=== PATIENT | female | born 1980 | race Caucasian/White ===

== ENCOUNTER 2018-01-12 22:30 | Emergency (ER) | payer OTHER ==
[~2018-01-12] VITALS: Ht 162.5 cm; Wt 44.5 kg
[~2018-01-12 22:30] MED LIST: AMITRIPTYLINE10 MG PO; AMOXICILLIN500 MG PO; ANAPROX DS550 MG PO; AUGMENTIN 875 M1 TAB PO; AUGMENTIN 875875 MG PO; BACTRIM DS 8001 TA1 PO; CIPRO500 MG PO; CIPROFLOXACIN500 MG PO; FLAGYL500 MG PO; FLEXERIL10 MG PO; Fioricet 325 MG1 TAB PO; IBU800 MG PO; KEFLEX500 MG PO; MOTRIN800 MG PO; MUCINEX DM 30/61 TAB PO; NAPROSYN500 MG PO; NORTRIPTYLINE10 MG PO; PERCOCET 325 MG1 TA2 PO; PERCOCET 325 MG1 TA6 PO; POTASSIUM20 MEQ PO; PREDNISONE20 M1 PO; PRILOSEC20 MG PO; PRILOSEC40 MG PO; QUETIAPINE FUMA25 MG PO; REGLAN10 MG PO; TESSALON PERLE100 M1 PO; TRAMADOL HCL50 MG PO; TRIMOX500 MG PO; VIBRAMYCIN100 MG PO; ZITHROMAX250 MG PO; ZITHROMAX500 MG PO; ZOFRAN ODT4 MG SL; ZOFRAN4 MG PO
[2018-01-12 22:36] VITALS: BP 104/67
[2018-01-12] MEDS ORDERED: SUBOXONE 12 MG1 EACH SL (22:43)
[2018-01-12] MEDS ORDERED: IBU800 MG PO (23:29)
== END 2018-01-12 23:52 | disposition home or self-care (01) ==
LOC: ED 22:30
DX: M25.572 Pain in left ankle and joints of left foot (principal); K21.9 Gastro-esophageal reflux disease without esophagitis; F10.10 Alcohol abuse, uncomplicated; F17.200 Nicotine dependence, unspecified, uncomplicated; Z88.8 Allergy status to other drugs, medicaments and biological substances; Z79.899 Other long term (current) drug therapy; Z90.49 Acquired absence of other specified parts of digestive tract

== ENCOUNTER 2018-05-20 11:19 | Emergency (ER) | payer OTHER ==
[~2018-05-20] VITALS: Ht 165.1 cm; Wt 38.6 kg
[~2018-05-20 11:19] MED LIST changes: +SUBOXONE 12 MG1 EACH SL
[2018-05-20 11:47] LABS: BASO % 0.2 % (0.0-1.0); HEMATOCRIT 40.5 % (37.0-47.0); HEMOGLOBIN 12.9 g/dl (12.0-16.0); LYMPH # 0.9 10*3/uL (1.3-4.4); MEAN CELL VOLUME 92.7 fl (81.0-99.0); MEAN CORPUSCULAR HGB 29.5 pg (27.0-31.0); MEAN CORPUSCULAR HGB CONC 31.9 g/dl (33.0-37.0); MEAN PLATELET VOLUME 11.1 fl (9.6-12.3); MONO # 0.4 10*3/uL (0.1-1.0); MONO % 3.2 % (3.0-9.0); NEUT # 9.9 10*3/uL (2.3-7.9); NEUT % 88.3 % (47.0-73.0); PLATELET COUNT AUTOMATED 179 10*3/uL (130-400); RED BLOOD COUNT 4.37 10*6/uL (4.10-5.10); RED CELL DISTRI WIDTH 12.5 % (0-14.5); WHITE BLOOD COUNT 11.2 10*3/uL (4.8-10.8)
[2018-05-20 12:01] LABS: ALBUMIN 3.2 gm/dl (3.1-4.5); ALKALINE PHOSPHATASE 79 U/L (45-117); BUN 10 mg/dl (7-24); CHLORIDE 104 mmol/L (98-107); CREATININE 0.55 mg/dL (0.55-1.02); LIPASE 42 U/L (73-393); POTASSIUM 3.6 mmol/L (3.5-5.1); SGOT/AST 13 IU/L (3-35); SGPT/ALT 13 U/L (12-78); SODIUM 139 mmol/L (136-145); TOTAL PROTEIN 7.4 gm/dL (6.4-8.2)
[2018-05-20 12:51] VITALS: BP 99/61
[2018-05-20] MEDS ORDERED: Zofran4 MG SL (13:14)
[2018-05-20] MEDS ORDERED: PREDNISONE50 MG PO (13:14)
[2018-05-20] MEDS ORDERED: PROAIR HFA8.5 GM INH (13:14)
[2018-05-20] MEDS ORDERED: MUCINEX1200 M1 PO (13:14)
[2018-05-20] MEDS ORDERED: LEVOFLOXACIN500 MG PO (13:14)
== END 2018-05-20 13:16 | disposition home or self-care (01) ==
LOC: ED 11:19
PROVIDERS: Nurse Practitioner Family
DX: J20.9 Acute bronchitis, unspecified (principal); J06.9 Acute upper respiratory infection, unspecified; F17.210 Nicotine dependence, cigarettes, uncomplicated; Z79.899 Other long term (current) drug therapy; Z90.49 Acquired absence of other specified parts of digestive tract; Z98.51 Tubal ligation status

== ENCOUNTER 2019-08-23 12:32 | Emergency (ER) | payer OTHER ==
[~2019-08-23] VITALS: Ht 162.5 cm; Wt 45.4 kg
[~2019-08-23 12:32] MED LIST changes: +LEVOFLOXACIN500 MG PO; +MUCINEX1200 M1 PO; +PREDNISONE50 MG PO; +PROAIR HFA8.5 GM INH; +Zofran4 MG SL
[2019-08-23 12:33] VITALS: BP 116/78
[2019-08-23 13:02] LABS: BASO % 0.2 % (0.0-1.0); EOS % 0.2 % (1.0-4.0); HEMATOCRIT 44.8 % (37.0-47.0); HEMOGLOBIN 13.9 g/dl (12.0-16.0); LYMPH # 1.3 10*3/uL (1.3-4.4); LYMPH % 16.2 % (27.0-41.0); MEAN CELL VOLUME 95.5 fl (81.0-99.0); MEAN CORPUSCULAR HGB 29.6 pg (27.0-31.0); MEAN PLATELET VOLUME 11.7 fl (9.6-12.3); MONO # 0.2 10*3/uL (0.1-1.0); MONO % 2.5 % (3.0-9.0); NEUT # 6.7 10*3/uL (2.3-7.9); NEUT % 80.7 % (47.0-73.0); PLATELET COUNT AUTOMATED 162 10*3/uL (130-400); RED BLOOD COUNT 4.69 10*6/uL (4.10-5.10); RED CELL DISTRI WIDTH 12.2 % (0-14.5); WHITE BLOOD COUNT 8.3 10*3/uL (4.8-10.8)
[2019-08-23 13:22] LABS: ALBUMIN 3.7 gm/dl (3.1-4.5); ALKALINE PHOSPHATASE 66 U/L (45-117); BUN 5 mg/dl (7-24); CHLORIDE 109 mmol/L (98-107); CREATININE 0.68 mg/dL (0.55-1.02); LIPASE 38 U/L (73-393); POTASSIUM 3.6 mmol/L (3.5-5.1); SGOT/AST 11 IU/L (3-35); SGPT/ALT 10 U/L (12-78); SODIUM 139 mmol/L (136-145)
[2019-08-23 13:53] LABS: BILIRUBIN 1+ (NEGATIVE); BLOOD NEGATIVE (NEGATIVE); CLARITY CLEAR (CLEAR); COLOR YELLOW (YELLOW); GLUCOSE NEGATIVE (NEGATIVE); KETONE 2+ (NEGATIVE); LEUKO ESTERASE NEGATIVE (NEGATIVE); NITRITE NEGATIVE (NEGATIVE); PH 7.5 (5.0-9.0)
[2019-08-23] MEDS ORDERED: ZOFRAN4 MG PO (13:54)
[2019-08-23 14:02] LABS: EPITHELIAL CELLS 31-40
[2019-08-23 14:03] LABS: BACTERIA TRACE; MUCOUS 1+
== END 2019-08-23 14:20 | disposition home or self-care (01) ==
LOC: ED 12:32
PROVIDERS: Nurse Practitioner Family
DX: B34.9 Viral infection, unspecified (principal); E86.0 Dehydration; R19.7 Diarrhea, unspecified; M79.10 Myalgia, unspecified site; K21.9 Gastro-esophageal reflux disease without esophagitis; Z88.8 Allergy status to other drugs, medicaments and biological substances; Z79.2 Long term (current) use of antibiotics; Z79.899 Other long term (current) drug therapy; Z90.49 Acquired absence of other specified parts of digestive tract

== ENCOUNTER 2020-02-11 10:28 | Emergency (ER) | payer OTHER ==
[~2020-02-11] VITALS: Ht 162.5 cm; Wt 45.4 kg
[2020-02-11 11:14] LABS: BASO % 0.2 % (0.0-1.0); EOS # 0.1 10*3/uL (0.0-0.4); EOS % 0.3 % (1.0-4.0); HEMATOCRIT 40.2 % (37.0-47.0); LYMPH # 1.3 10*3/uL (1.3-4.4); LYMPH % 8.5 % (27.0-41.0); MEAN CELL VOLUME 96.4 fl (81.0-99.0); MEAN CORPUSCULAR HGB 30.2 pg (27.0-31.0); MEAN CORPUSCULAR HGB CONC 31.3 g/dl (33.0-37.0); MEAN PLATELET VOLUME 11.2 fl (9.6-12.3); MONO # 0.6 10*3/uL (0.1-1.0); NEUT # 12.9 10*3/uL (2.3-7.9); NEUT % 86.6 % (47.0-73.0); PLATELET COUNT AUTOMATED 201 10*3/uL (130-400); RED BLOOD COUNT 4.17 10*6/uL (4.10-5.10); RED CELL DISTRI WIDTH 12.5 % (0-14.5); WHITE BLOOD COUNT 14.9 10*3/uL (4.8-10.8)
[2020-02-11 11:31] LABS: ALBUMIN 3.3 gm/dl (3.1-4.5); ALKALINE PHOSPHATASE 76 U/L (45-117); BUN 9 mg/dl (7-24); CHLORIDE 116 mmol/L (98-107); CREATININE 0.79 mg/dL (0.55-1.02); LIPASE 26 U/L (73-393); POTASSIUM 3.4 mmol/L (3.5-5.1); SGOT/AST 16 IU/L (3-35); SGPT/ALT 14 U/L (12-78); SODIUM 142 mmol/L (136-145); TOTAL PROTEIN 7.3 gm/dL (6.4-8.2)
[2020-02-11 13:40] LABS: CLARITY SL CLOUDY (CLEAR); COLOR YELLOW (YELLOW); GLUCOSE NEGATIVE (NEGATIVE)
[2020-02-11 13:41] LABS: BILIRUBIN NEGATIVE (NEGATIVE); BLOOD 2+ (NEGATIVE); KETONE NEGATIVE (NEGATIVE); LEUKO ESTERASE NEGATIVE (NEGATIVE); NITRITE NEGATIVE (NEGATIVE); UROBILINOGEN 0.2 E.U./dl (0.2-1.0)
[2020-02-11 13:43] LABS: BACTERIA 2+; MUCOUS 2+
[2020-02-11 13:44] VITALS: BP 113/65
[2020-02-11] MEDS ORDERED: ZOFRAN4 MG PO (15:37)
[2020-02-11] MEDS ORDERED: IMODIUM A-D2 M2 PO (15:37)
== END 2020-02-11 15:40 | disposition home or self-care (01) ==
LOC: ED 10:28
PROVIDERS: Emergency Medicine
DX: K52.9 Noninfective gastroenteritis and colitis, unspecified (principal); R11.2 Nausea with vomiting, unspecified; K21.9 Gastro-esophageal reflux disease without esophagitis; Z88.8 Allergy status to other drugs, medicaments and biological substances; Z79.899 Other long term (current) drug therapy

== ENCOUNTER 2020-03-30 02:58 | Emergency (ER) | payer OTHER ==
[~2020-03-30] VITALS: Ht 162.5 cm; Wt 45.4 kg
[~2020-03-30 02:58] MED LIST changes: +IMODIUM A-D2 M2 PO
[2020-03-30 04:04] LABS: BASO % 0.2 % (0.0-1.0); EOS # 0.1 10*3/uL (0.0-0.4); EOS % 1.7 % (1.0-4.0); HEMATOCRIT 35.6 % (37.0-47.0); LYMPH % 34.4 % (27.0-41.0); MEAN CELL VOLUME 93.4 fl (81.0-99.0); MEAN CORPUSCULAR HGB 29.1 pg (27.0-31.0); MEAN CORPUSCULAR HGB CONC 31.2 g/dl (33.0-37.0); MEAN PLATELET VOLUME 11.4 fl (9.6-12.3); MONO # 0.3 10*3/uL (0.1-1.0); MONO % 5.7 % (3.0-9.0); NEUT # 3.3 10*3/uL (2.3-7.9); NEUT % 57.8 % (47.0-73.0); PLATELET COUNT AUTOMATED 127 10*3/uL (130-400); RED BLOOD COUNT 3.81 10*6/uL (4.10-5.10); RED CELL DISTRI WIDTH 12.4 % (0-14.5); WHITE BLOOD COUNT 5.8 10*3/uL (4.8-10.8)
[2020-03-30 04:13] LABS: ACT PARTIAL THROMBO TIME 28.4 SECONDS (20.0-32.1); INTERNATIONAL NORM RATIO 1.1 (2.0-3.5)
[2020-03-30 04:19] LABS: ALBUMIN 2.9 gm/dl (3.1-4.5); ALKALINE PHOSPHATASE 59 U/L (45-117); BUN 8 mg/dl (7-24); CHLORIDE 113 mmol/L (98-107); CREATININE 0.65 mg/dL (0.55-1.02); LIPASE 33 U/L (73-393); SGOT/AST 12 IU/L (3-35); SGPT/ALT 13 U/L (12-78); SODIUM 143 mmol/L (136-145); TOTAL PROTEIN 6.2 gm/dL (6.4-8.2)
[2020-03-30 04:33] LABS: BETA-HCG, QUANT < 1.0 mIU/mL (1-3); TROPONIN I < 0.015 ng/ml (<0.045)
[2020-03-30 04:57] VITALS: BP 134/71
[2020-03-30 06:53] LABS: BILIRUBIN NEGATIVE (NEGATIVE); BLOOD 1+ (NEGATIVE); CLARITY CLEAR (CLEAR); COLOR YELLOW (YELLOW); GLUCOSE NEGATIVE (NEGATIVE); KETONE NEGATIVE (NEGATIVE); LEUKO ESTERASE TRACE (NEGATIVE); NITRITE NEGATIVE (NEGATIVE); PH 7.5 (5.0-9.0); RBC 0-2 rbc/hpf (0-2); SPECIFIC GRAVITY 1.005 (1.005-1.030); UROBILINOGEN 0.2 E.U./dl (0.2-1.0)
[2020-03-30] MEDS ORDERED: ZITHROMAX250 MG PO (06:53)
== END 2020-03-30 06:54 | disposition home or self-care (01) ==
LOC: ED 02:58
PROVIDERS: Emergency Medicine Emergency Medical Services
DX: J20.9 Acute bronchitis, unspecified (principal); F17.200 Nicotine dependence, unspecified, uncomplicated; K21.9 Gastro-esophageal reflux disease without esophagitis; Z79.899 Other long term (current) drug therapy; Z20.828 Contact with and (suspected) exposure to other viral communicable diseases

== ENCOUNTER 2021-02-14 14:06 | Emergency (ER) | payer OTHER ==
[~2021-02-14] VITALS: Ht 162.5 cm; Wt 45.4 kg
[2021-02-14 14:24] VITALS: BP 104/92
[2021-02-14 16:33] LABS: BASO % 0.3 % (0.0-1.0); EOS # 0.2 10*3/uL (0.0-0.4); EOS % 2.5 % (1.0-4.0); HEMATOCRIT 39.5 % (37.0-47.0); LYMPH # 1.9 10*3/uL (1.3-4.4); LYMPH % 25.8 % (27.0-41.0); MEAN CELL VOLUME 95.2 fl (81.0-99.0); MEAN CORPUSCULAR HGB 29.4 pg (27.0-31.0); MEAN CORPUSCULAR HGB CONC 30.9 g/dl (33.0-37.0); MEAN PLATELET VOLUME 11.2 fl (9.6-12.3); MONO # 0.3 10*3/uL (0.1-1.0); MONO % 4.1 % (3.0-9.0); NEUT # 4.9 10*3/uL (2.3-7.9); PLATELET COUNT AUTOMATED 197 10*3/uL (130-400); RED BLOOD COUNT 4.15 10*6/uL (4.10-5.10); RED CELL DISTRI WIDTH 12.8 % (0-14.5); WHITE BLOOD COUNT 7.3 10*3/uL (4.8-10.8)
[2021-02-14 16:51] LABS: ALBUMIN 3.4 gm/dl (3.1-4.5); ALKALINE PHOSPHATASE 69 U/L (45-117); BUN 11 mg/dl (7-24); CHLORIDE 111 mmol/L (98-107); CREATININE 0.62 mg/dL (0.55-1.02); POTASSIUM 3.3 mmol/L (3.5-5.1); SGPT/ALT 9 U/L (12-78); SODIUM 142 mmol/L (136-145)
[2021-02-14 16:53] LABS: SGOT/AST 12 IU/L (3-35)
[2021-02-14] MEDS ORDERED: PREDNISONE10 MG PO (17:44)
[2021-02-15 09:07] LABS: RHEUMATOID ARTHRITIS FACTOR <10.0 IU/mL (0.0-13.9)
[2021-02-18 00:06] LABS: CCP ANTIBODIES IGG/IGA 1 units (0-19)
== END 2021-02-14 18:15 | disposition home or self-care (01) ==
LOC: ED 14:06
PROVIDERS: Family Medicine
DX: M79.641 Pain in right hand (principal); M79.642 Pain in left hand; M25.50 Pain in unspecified joint; Z79.899 Other long term (current) drug therapy; Z90.49 Acquired absence of other specified parts of digestive tract; Z98.890 Other specified postprocedural states

== ENCOUNTER 2021-07-30 15:51 | Emergency (ER) | payer OTHER ==
[~2021-07-30] VITALS: Ht 162.5 cm; Wt 40.8 kg
[~2021-07-30 15:51] MED LIST changes: +PREDNISONE10 MG PO
[2021-07-30 16:09] VITALS: BP 107/51
== END 2021-07-30 19:01 | disposition home or self-care (01) ==
LOC: ED 15:51
DX: S60.211A Contusion of right wrist, initial encounter (principal); V40.5XXA Car driver injured in collision with pedestrian or animal in traffic accident, initial encounter; Y93.89 Activity, other specified; Y92.89 Other specified places as the place of occurrence of the external cause; Y99.8 Other external cause status

== ENCOUNTER 2021-10-08 15:35 | Emergency (ER) | payer OTHER ==
[~2021-10-08] VITALS: Wt 45.4 kg
[2021-10-08 15:46] VITALS: BP 96/50
[2021-10-08] MEDS ORDERED: ZOFRAN4 MG PO (20:56)
== END 2021-10-08 20:58 | disposition home or self-care (01) ==
LOC: ED 15:35
DX: B34.9 Viral infection, unspecified (principal); Z20.822 Contact with and (suspected) exposure to COVID-19; Z88.8 Allergy status to other drugs, medicaments and biological substances; Z79.899 Other long term (current) drug therapy; Z90.49 Acquired absence of other specified parts of digestive tract; Z98.51 Tubal ligation status; Z98.890 Other specified postprocedural states

== ENCOUNTER 2022-12-16 16:31 | Emergency (ER) | payer OTHER ==
[~2022-12-16] VITALS: Wt 45.4 kg
[~2022-12-16 16:31] MED LIST changes: +LEVOFLOXACIN750 M2 PO; +PROZAC20 MG PO
[2022-12-16 16:52] VITALS: BP 105/74
[2022-12-16] MEDS ORDERED: CEPHALEXIN500 M1 PO (19:56)
== END 2022-12-16 20:10 | disposition home or self-care (01) ==
LOC: ED 16:31
DX: Z76.0 Encounter for issue of repeat prescription (principal); G47.00 Insomnia, unspecified; R11.10 Vomiting, unspecified; K21.9 Gastro-esophageal reflux disease without esophagitis; Z88.8 Allergy status to other drugs, medicaments and biological substances; Z98.890 Other specified postprocedural states; Z90.49 Acquired absence of other specified parts of digestive tract; Z98.51 Tubal ligation status; F12.90 Cannabis use, unspecified, uncomplicated; F17.200 Nicotine dependence, unspecified, uncomplicated

== ENCOUNTER → 2022-12-25 | Outpatient (CLI) | payer OTHER ==
[~2022-12-25] MED LIST changes: +CEPHALEXIN500 M1 PO
== END | disposition home or self-care (01) ==
LOC: TELEHEALTH 01:17
PROVIDERS: ATTEND Internal Medicine Infectious Disease
DX: A41.9 Sepsis, unspecified organism (principal); R63.4 Abnormal weight loss; R10.9 Unspecified abdominal pain; Z88.8 Allergy status to other drugs, medicaments and biological substances; Z79.899 Other long term (current) drug therapy

== ENCOUNTER 2023-10-26 14:02 | Emergency (ER) | payer OTHER ==
[~2023-10-26] VITALS: Ht 162.5 cm; Wt 45.4 kg
[2023-10-26 14:37] VITALS: BP 112/84
[2023-10-26] MEDS ORDERED: ALBUTEROL 8 GM INHALER INH ONE (15:00)
[2023-10-26 16:01] LABS: BASO % 0.1 % (0.0-1.0); EOS # 0.1 10*3/uL (0.0-0.4); EOS % 1.2 % (1.0-4.0); HEMATOCRIT 43.2 % (37.0-47.0); LYMPH # 1.6 10*3/uL (1.3-4.4); LYMPH % 21.7 % (27.0-41.0); MEAN CELL VOLUME 95.6 fl (81.0-99.0); MEAN CORPUSCULAR HGB 29.2 pg (27.0-31.0); MEAN CORPUSCULAR HGB CONC 30.6 g/dl (33.0-37.0); MEAN PLATELET VOLUME 10.8 fl (9.6-12.3); MONO # 0.4 10*3/uL (0.1-1.0); MONO % 5.9 % (3.0-9.0); NEUT # 5.3 10*3/uL (2.3-7.9); NEUT % 70.8 % (47.0-73.0); PLATELET COUNT AUTOMATED 240 10*3/uL (130-400); RED BLOOD COUNT 4.52 10*6/uL (4.10-5.10); RED CELL DISTRI WIDTH 12.9 % (0-14.5); WHITE BLOOD COUNT 7.4 10*3/uL (4.8-10.8)
[2023-10-26 16:30] LABS: BUN 10 mg/dl (9-23); CHLORIDE 107 mmol/L (98-107)
[2023-10-26] MEDS ORDERED: AMOX-CLAV 875-1 EACH PO (17:00)
== END 2023-10-26 19:29 | disposition home or self-care (01) ==
LOC: ED 14:02
PROVIDERS: Nurse Practitioner
DX: J32.9 Chronic sinusitis, unspecified (principal); Z20.822 Contact with and (suspected) exposure to COVID-19; R06.02 Shortness of breath; K21.9 Gastro-esophageal reflux disease without esophagitis; Z88.8 Allergy status to other drugs, medicaments and biological substances; Z98.890 Other specified postprocedural states; Z90.49 Acquired absence of other specified parts of digestive tract; Z98.51 Tubal ligation status; F17.210 Nicotine dependence, cigarettes, uncomplicated; F12.90 Cannabis use, unspecified, uncomplicated

== ENCOUNTER 2023-12-16 12:10 | Emergency (ER) | payer OTHER ==
[~2023-12-16] VITALS: Wt 45.4 kg
[~2023-12-16 12:10] MED LIST changes: +AMOX-CLAV 875-1 EACH PO
[2023-12-16 12:22] VITALS: BP 122/86
[2023-12-16] MEDS ORDERED: Dexamethasone Sodium Phospha 20 MG/5 ML VIAL IM ONE (12:35)
[2023-12-16] MEDS ORDERED: Albuterol Sulfate 2.5 MG/3 ML VIAL NEB ONE (12:35)
[2023-12-16 12:48] LABS: BASO % 0.2 % (0.0-1.0); EOS # 0.2 10*3/uL (0.0-0.4); EOS % 2.5 % (1.0-4.0); HEMATOCRIT 43.7 % (37.0-47.0); LYMPH # 1.4 10*3/uL (1.3-4.4); LYMPH % 17.2 % (27.0-41.0); MEAN CELL VOLUME 96.9 fl (81.0-99.0); MEAN CORPUSCULAR HGB 29.3 pg (27.0-31.0); MEAN CORPUSCULAR HGB CONC 30.2 g/dl (33.0-37.0); MEAN PLATELET VOLUME 10.3 fl (9.6-12.3); MONO # 0.3 10*3/uL (0.1-1.0); MONO % 3.1 % (3.0-9.0); NEUT # 6.2 10*3/uL (2.3-7.9); NEUT % 76.8 % (47.0-73.0); PLATELET COUNT AUTOMATED 281 10*3/uL (130-400); RED BLOOD COUNT 4.51 10*6/uL (4.10-5.10); RED CELL DISTRI WIDTH 12.8 % (0-14.5)
[2023-12-16 13:07] LABS: BUN 9 mg/dl (9-23); CHLORIDE 106 mmol/L (98-107)
[2023-12-16] MEDS ORDERED: DECADRON4 MG PO (13:40)
[2023-12-16] MEDS ORDERED: ALBUTEROL2.5 MG/0.5 INH (13:40)
[2023-12-16] MEDS ORDERED: ZITHROMAX250 MG PO (13:40)
== END 2023-12-16 13:46 | disposition home or self-care (01) ==
LOC: ED 12:10
PROVIDERS: Nurse Practitioner
DX: J44.1 Chronic obstructive pulmonary disease with (acute) exacerbation (principal); K21.9 Gastro-esophageal reflux disease without esophagitis; Z88.8 Allergy status to other drugs, medicaments and biological substances; Z90.49 Acquired absence of other specified parts of digestive tract; Z98.51 Tubal ligation status; Z98.890 Other specified postprocedural states; F17.210 Nicotine dependence, cigarettes, uncomplicated; F12.90 Cannabis use, unspecified, uncomplicated

== ENCOUNTER 2023-12-24 17:32 | Emergency (ER) | payer OTHER ==
[~2023-12-24] VITALS: Ht 165.1 cm; Wt 45.4 kg
[~2023-12-24 17:32] MED LIST changes: +ALBUTEROL2.5 MG/0.5 INH; +DECADRON4 MG PO
[2023-12-24 18:13] VITALS: BP 105/73
[2023-12-24] MEDS ORDERED: Ketorolac Tromethamine 30 MG/ML VIAL IM ONE (18:25)
[2023-12-24 18:34] LABS: BASO % 0.2 % (0.0-1.0); EOS # 0.3 10*3/uL (0.0-0.4); EOS % 1.7 % (1.0-4.0); HEMATOCRIT 44.6 % (37.0-47.0); LYMPH # 1.5 10*3/uL (1.3-4.4); LYMPH % 9.4 % (27.0-41.0); MEAN CELL VOLUME 93.7 fl (81.0-99.0); MEAN CORPUSCULAR HGB 29.4 pg (27.0-31.0); MEAN CORPUSCULAR HGB CONC 31.4 g/dl (33.0-37.0); MEAN PLATELET VOLUME 9.8 fl (9.6-12.3); MONO # 0.7 10*3/uL (0.1-1.0); MONO % 4.6 % (3.0-9.0); NEUT # 13.4 10*3/uL (2.3-7.9); NEUT % 83.7 % (47.0-73.0); PLATELET COUNT AUTOMATED 370 10*3/uL (130-400); RED BLOOD COUNT 4.76 10*6/uL (4.10-5.10); RED CELL DISTRI WIDTH 12.3 % (0-14.5)
[2023-12-24 19:06] LABS: ALKALINE PHOSPHATASE 95 U/L (46-116); BETA-HCG, QUANT < 3.0 mIU/mL (3-10); BUN 11 mg/dl (9-23); CHLORIDE 103 mmol/L (98-107); LIPASE 28 U/L (12-53); POTASSIUM 4.1 mmol/L (3.4-5.1); SGPT/ALT 8 U/L (5-49); TOTAL PROTEIN 7.2 gm/dL (6.0-8.0)
[2023-12-24 19:59] LABS: BILIRUBIN Negative (Negative); BLOOD Trace-Lysed (Negative); CLARITY Clear (Clear); COLOR Dark Yellow (Yellow); GLUCOSE Negative (Negative); KETONE 3+ (Negative); LEUKO ESTERASE Negative (Negative); NITRITE Negative (Negative); PH 5.5 (4.5-8.0); SPECIFIC GRAVITY 1.025 (1.001-1.030)
[2023-12-24 20:07] LABS: MUCOUS 1+
[2023-12-24] MEDS ORDERED: FLUOXETINE HCL40 MG PO (20:10)
== END 2023-12-24 20:32 | disposition home or self-care (01) ==
LOC: ED 17:32
PROVIDERS: Physician Assistant Medical
DX: R10.32 Left lower quadrant pain (principal); R10.31 Right lower quadrant pain; K21.9 Gastro-esophageal reflux disease without esophagitis; Z88.8 Allergy status to other drugs, medicaments and biological substances; Z98.890 Other specified postprocedural states; Z90.49 Acquired absence of other specified parts of digestive tract; Z98.51 Tubal ligation status; F17.210 Nicotine dependence, cigarettes, uncomplicated; F12.90 Cannabis use, unspecified, uncomplicated

== ENCOUNTER 2024-03-17 09:42 | Emergency (ER) | payer OTHER ==
[~2024-03-17] VITALS: Ht 162.5 cm; Wt 47.6 kg
[~2024-03-17 09:42] MED LIST changes: +FLUOXETINE HCL40 MG PO
[2024-03-17 09:51] VITALS: BP 104/65
[2024-03-17] MEDS ORDERED: SODIUM CHLORIDE 0.9% 1,000 ML IV ONE (10:00)
[2024-03-17] MEDS ORDERED: MORPHINE Sulfate 2 MG/ML SYR IV ONE (10:00)
[2024-03-17] MEDS ORDERED: diphenhydrAMINE hydrochloride 50 MG/ML VIAL IV ONE (10:05)
[2024-03-17] MEDS ORDERED: Metoclopramide Hydrochloride 10 MG/2 ML AMP IV ONE (10:05)
[2024-03-17 10:14] LABS: BASO % 0.2 % (0.0-1.0); EOS # 0.1 10*3/uL (0.0-0.4); EOS % 1.5 % (1.0-4.0); HEMATOCRIT 41.8 % (37.0-47.0); LYMPH # 1.6 10*3/uL (1.3-4.4); LYMPH % 25.7 % (27.0-41.0); MEAN CELL VOLUME 96.5 fl (81.0-99.0); MEAN CORPUSCULAR HGB 29.6 pg (27.0-31.0); MEAN CORPUSCULAR HGB CONC 30.6 g/dl (33.0-37.0); MEAN PLATELET VOLUME 10.7 fl (9.6-12.3); MONO # 0.4 10*3/uL (0.1-1.0); MONO % 5.9 % (3.0-9.0); NEUT % 66.5 % (47.0-73.0); PLATELET COUNT AUTOMATED 221 10*3/uL (130-400); RED BLOOD COUNT 4.33 10*6/uL (4.10-5.10); RED CELL DISTRI WIDTH 12.5 % (0-14.5); WHITE BLOOD COUNT 6.1 10*3/uL (4.8-10.8)
[2024-03-17] MEDS ORDERED: IOHEXOL 300 MG/ML 100 ML VIAL IV ONE (10:20)
[2024-03-17 10:36] LABS: ALKALINE PHOSPHATASE 87 U/L (46-116); BUN 8 mg/dl (9-23); CHLORIDE 106 mmol/L (98-107); LIPASE 22 U/L (12-53); SGPT/ALT < 7 U/L (5-49); TOTAL PROTEIN 7.3 gm/dL (6.0-8.0)
[2024-03-17 12:40] LABS: BILIRUBIN Negative (Negative); BLOOD Negative (Negative); CLARITY Clear (Clear); COLOR Yellow (Yellow); GLUCOSE Negative (Negative); KETONE Trace (Negative); LEUKO ESTERASE Negative (Negative); NITRITE Negative (Negative); SPECIFIC GRAVITY >= 1.030 (1.001-1.030)
[2024-03-17 12:52] LABS: BACTERIA TRACE; RBC 0-2 rbc/hpf (0-2); WBC 0-2 wbc/hpf (0-5)
[2024-03-17] MEDS ORDERED: REGLAN10 M1 PO (13:19)
[2024-03-17] MEDS ORDERED: MELOXICAM15 MG PO (13:19)
== END 2024-03-17 13:30 | disposition home or self-care (01) ==
LOC: ED 09:42
PROVIDERS: Emergency Medicine
DX: R10.30 Lower abdominal pain, unspecified (principal); R11.2 Nausea with vomiting, unspecified; R19.7 Diarrhea, unspecified; K21.9 Gastro-esophageal reflux disease without esophagitis; E78.5 Hyperlipidemia, unspecified; I12.9 Hypertensive chronic kidney disease with stage 1 through stage 4 chronic kidney disease, or unspecified chronic kidney disease; N18.9 Chronic kidney disease, unspecified; F17.210 Nicotine dependence, cigarettes, uncomplicated; F12.90 Cannabis use, unspecified, uncomplicated; Z88.8 Allergy status to other drugs, medicaments and biological substances; Z88.1 Allergy status to other antibiotic agents; Z98.890 Other specified postprocedural states; Z90.49 Acquired absence of other specified parts of digestive tract; Z98.51 Tubal ligation status

== ENCOUNTER 2024-05-04 17:52 | Emergency (ER) | payer OTHER ==
[~2024-05-04] VITALS: Ht 162.5 cm; Wt 56.7 kg
[~2024-05-04 17:52] MED LIST changes: +MELOXICAM15 MG PO; +REGLAN10 M1 PO
[2024-05-04] MEDS ORDERED: Ketorolac Tromethamine 60 MG/2 ML VIAL IM ONE (19:10)
[2024-05-04] MEDS ORDERED: ACETAMINOPHEN 325 MG TAB PO ONE (19:10)
[2024-05-04 19:30] VITALS: BP 109/64
== END 2024-05-04 20:15 | disposition home or self-care (01) ==
LOC: ED 17:52
DX: U07.1 COVID-19 (principal); H92.01 Otalgia, right ear; D64.9 Anemia, unspecified; J44.9 Chronic obstructive pulmonary disease, unspecified; E87.6 Hypokalemia; E83.42 Hypomagnesemia; K21.9 Gastro-esophageal reflux disease without esophagitis; F17.210 Nicotine dependence, cigarettes, uncomplicated; F12.90 Cannabis use, unspecified, uncomplicated; Z88.1 Allergy status to other antibiotic agents; Z88.8 Allergy status to other drugs, medicaments and biological substances; Z98.890 Other specified postprocedural states; Z90.49 Acquired absence of other specified parts of digestive tract; Z98.51 Tubal ligation status

== ENCOUNTER 2024-07-22 20:49 | Emergency (ER) | payer OTHER ==
[~2024-07-22] VITALS: Ht 154.9 cm; Wt 45.4 kg
[2024-07-22] MEDS ORDERED: Ondansetron Hydrochloride 4 MG TAB SL ONE (21:30)
[2024-07-22 22:03] LABS: BILIRUBIN Negative (Negative); BLOOD Negative (Negative); CLARITY Clear (Clear); COLOR Yellow (Yellow); GLUCOSE Negative (Negative); KETONE 2+ (Negative); LEUKO ESTERASE Negative (Negative); NITRITE Negative (Negative)
[2024-07-22 22:03] LABS: BASO % 0.2 % (0.0-1.0); EOS # 0.1 10*3/uL (0.0-0.4); EOS % 2.1 % (1.0-4.0); HEMATOCRIT 38.3 % (37.0-47.0); MEAN CELL VOLUME 94.8 fl (81.0-99.0); MEAN CORPUSCULAR HGB CONC 30.5 g/dl (33.0-37.0); MEAN PLATELET VOLUME 11.2 fl (9.6-12.3); MONO # 0.4 10*3/uL (0.1-1.0); MONO % 7.5 % (3.0-9.0); NEUT # 2.9 10*3/uL (2.3-7.9); NEUT % 60.1 % (47.0-73.0); PLATELET COUNT AUTOMATED 213 10*3/uL (130-400); RED BLOOD COUNT 4.04 10*6/uL (4.10-5.10); RED CELL DISTRI WIDTH 12.8 % (0-14.5); WHITE BLOOD COUNT 4.8 10*3/uL (4.8-10.8)
[2024-07-22 22:16] LABS: BUN 7 mg/dl (9-23); CHLORIDE 107 mmol/L (98-107); POTASSIUM 4.1 mmol/L (3.4-5.1)
[2024-07-22 22:43] LABS: BACTERIA TRACE; EPITHELIAL CELLS 21-30; WBC 0-2 wbc/hpf (0-5)
[2024-07-22 22:47] VITALS: BP 113/66
[2024-07-22] MEDS ORDERED: Ondansetron4 MG PO (22:51)
[2024-07-22] MEDS ORDERED: MACROBID100 M1 PO (22:51)
== END 2024-07-22 22:57 | disposition home or self-care (01) ==
LOC: ED 20:49
PROVIDERS: Internal Medicine
DX: A08.4 Viral intestinal infection, unspecified (principal); R11.2 Nausea with vomiting, unspecified; R19.7 Diarrhea, unspecified; F17.210 Nicotine dependence, cigarettes, uncomplicated; Z88.8 Allergy status to other drugs, medicaments and biological substances; Z79.899 Other long term (current) drug therapy; Z98.890 Other specified postprocedural states; Z90.49 Acquired absence of other specified parts of digestive tract; Z88.1 Allergy status to other antibiotic agents; Z98.51 Tubal ligation status

== ENCOUNTER 2024-08-05 18:24 | Emergency (ER) | payer OTHER ==
[~2024-08-05] VITALS: Wt 44.9 kg
[~2024-08-05 18:24] MED LIST changes: +MACROBID100 M1 PO; +Ondansetron4 MG PO
[2024-08-05 18:42] VITALS: BP 102/84
[2024-08-05] MEDS ORDERED: Ketorolac Tromethamine 60 MG/2 ML VIAL IM ONE (19:50)
[2024-08-05] MEDS ORDERED: MELOXICAM15 MG PO (21:00)
== END 2024-08-05 21:07 | disposition home or self-care (01) ==
LOC: ED 18:24
DX: S27.321A Contusion of lung, unilateral, initial encounter (principal); M79.601 Pain in right arm; D64.9 Anemia, unspecified; K21.9 Gastro-esophageal reflux disease without esophagitis; F17.200 Nicotine dependence, unspecified, uncomplicated; F12.90 Cannabis use, unspecified, uncomplicated; Z88.1 Allergy status to other antibiotic agents; Z88.8 Allergy status to other drugs, medicaments and biological substances; Z98.890 Other specified postprocedural states; Z90.49 Acquired absence of other specified parts of digestive tract; Z98.51 Tubal ligation status; W23.0XXA Caught, crushed, jammed, or pinched between moving objects, initial encounter; Y93.89 Activity, other specified; Y92.89 Other specified places as the place of occurrence of the external cause; Y99.0 Civilian activity done for income or pay

== ENCOUNTER 2024-09-01 17:02 | Emergency (ER) | payer OTHER ==
[~2024-09-01] VITALS: Ht 162.5 cm; Wt 45.4 kg
[2024-09-01 17:18] VITALS: BP 94/66
[2024-09-01] MEDS ORDERED: SODIUM CHLORIDE 0.9% 1,000 ML IV ONE (17:25)
[2024-09-01] MEDS ORDERED: Metoclopramide Hydrochloride 10 MG/2 ML VIAL IV ONE (17:30)
[2024-09-01] MEDS ORDERED: diphenhydrAMINE hydrochloride 50 MG/ML VIAL IV ONE (17:30)
[2024-09-01] MEDS ORDERED: MORPHINE Sulfate 2 MG/ML SYR IV ONE (17:30)
[2024-09-01 17:41] LABS: BASO % 0.2 % (0.0-1.0); EOS % 0.3 % (1.0-4.0); HEMATOCRIT 45.5 % (37.0-47.0); MEAN CELL VOLUME 95.4 fl (81.0-99.0); MEAN CORPUSCULAR HGB 29.4 pg (27.0-31.0); MEAN CORPUSCULAR HGB CONC 30.8 g/dl (33.0-37.0); MEAN PLATELET VOLUME 10.5 fl (9.6-12.3); MONO # 0.4 10*3/uL (0.1-1.0); MONO % 3.8 % (3.0-9.0); NEUT # 10.1 10*3/uL (2.3-7.9); NEUT % 87.8 % (47.0-73.0); PLATELET COUNT AUTOMATED 243 10*3/uL (130-400); RED BLOOD COUNT 4.77 10*6/uL (4.10-5.10); RED CELL DISTRI WIDTH 12.4 % (0-14.5); WHITE BLOOD COUNT 11.5 10*3/uL (4.8-10.8)
[2024-09-01 18:43] LABS: BUN 8 mg/dl (9-23); CHLORIDE 105 mmol/L (98-107); LIPASE 21 U/L (12-53); POTASSIUM 3.8 mmol/L (3.4-5.1)
[2024-09-01 18:48] LABS: BILIRUBIN Negative (Negative); BLOOD Negative (Negative); CLARITY Clear (Clear); COLOR Yellow (Yellow); GLUCOSE Negative (Negative); KETONE Trace (Negative); LEUKO ESTERASE 1+ (Negative); NITRITE Negative (Negative); PH 5.5 (4.5-8.0); SPECIFIC GRAVITY 1.025 (1.001-1.030)
[2024-09-01 18:57] LABS: BACTERIA 1+; MUCOUS 3+
[2024-09-01] MEDS ORDERED: KETOROLAC10 MG PO (19:06)
[2024-09-01] MEDS ORDERED: Ondansetron4 MG PO (19:06)
[2024-09-01] MEDS ORDERED: SEPTDS PO (19:06)
== END 2024-09-01 19:24 | disposition home or self-care (01) ==
LOC: ED 17:02
PROVIDERS: Emergency Medicine
DX: N39.0 Urinary tract infection, site not specified (principal); R11.2 Nausea with vomiting, unspecified; K21.9 Gastro-esophageal reflux disease without esophagitis; R19.7 Diarrhea, unspecified; F17.210 Nicotine dependence, cigarettes, uncomplicated; Z88.1 Allergy status to other antibiotic agents; Z88.8 Allergy status to other drugs, medicaments and biological substances; Z98.890 Other specified postprocedural states; Z90.49 Acquired absence of other specified parts of digestive tract; Z98.51 Tubal ligation status

== ENCOUNTER 2025-03-12 19:20 | Emergency (ER) | payer SELFPAY ==
[~2025-03-12] VITALS: Ht 162.5 cm; Wt 40.8 kg
[~2025-03-12 19:20] MED LIST changes: +KETOROLAC10 MG PO; +SEPTDS PO
[2025-03-12 21:32] VITALS: BP 96/48
== END 2025-03-12 22:56 | disposition left against medical advice (07) ==
LOC: ED 19:20
DX: R05.9 Cough, unspecified (principal); R07.89 Other chest pain; R51.9 Headache, unspecified; Z53.21 Procedure and treatment not carried out due to patient leaving prior to being seen by health care provider